=== PATIENT | male | born 1950 | race Caucasian/White ===

== ENCOUNTER 2019-02-28 11:32 | Inpatient (IN) ==
[2019-02-28] MEDS ORDERED: guaiFENesin/DM ER 600-30 MG TABLET PO PRN (13:25)
[2019-02-28] MEDS ORDERED: DOCUSATE SODIUM 100 MG CAPSULE PO PRN (13:25)
[2019-02-28] MEDS ORDERED: ACETAMINOPHEN 325 MG TABLET PO PRN (13:25)
[2019-02-28] MEDS ORDERED: ONDANSETRON 4 MG/2 ML VIAL IV PRN (13:25)
[2019-02-28 14:24] LABS: Basophils # 0.2 10*3/uL (0.0-0.2); Eosinophils % 0.1 % (0.00-10.9); Hematocrit 49.1 VOL% (42.0-52.0); Hemoglobin 16.6 GM/DL (14.0-18.0); Immature Granulocytes % 9.7 %; Immature Granulocytes Absolute 1.51 #; Lymphocytes # 0.5 10*3/uL (1.4-4.0); Lymphocytes % 3.4 % (21.2-54.2); Mean Corpuscular HGB Conc 33.8 GM/DL (32-36); Mean Corpuscular Volume 89.1 FL (87-102); Mean Platelet Volume 10.4 FL (9.6-12.0); Monocytes % 5.1 % (1.7-12.7); NRBC # 0.14 10*3/uL; Neutrophils % 80.7 % (38.7-73.9); Platelet Count 176 T/CUMM (130-400); Red Blood Count 5.51 MC/CUMM (3.8-5.5); Red Cell Distribution Width 17.2 % (9.3-17.3); White Blood Count 15.6 T/CUMM (4-12)
[2019-02-28] MEDS ORDERED: ALBUTEROL 2.5 MG/3 ML NEB RESP TX PRN (14:35)
[2019-02-28 14:55] LABS: Albumin 2.8 G/DL (3.4-5.0); Calcium 8.9 MG/DL (8.5-10.1); Osmolality,Calculated 276.7 MOS/KG (273-304); Risk Ratio 3.07; Thyroid Stimulating Hormone 0.257 uIU/ml (0.358-3.74); Total Protein 6.4 G/DL (6.4-8.3); VLDL CHOLESTEROL 39.4 MG/DL
[2019-02-28] MEDS: SODIUM CHLORIDE 0.9% 1,000 ML IV SCH (15:04)
[2019-02-28] MEDS: cefTRIAXone 1,000 MG in SYRINGE 1 EACH IV SCH (15:04)
[2019-02-28 15:25] LABS: Lymphocytes 5 % (20-55); Nucleated Red Blood Cells 3 (0-5); Segmented Neutrophils 91 % (50-85); Total Cells Counted 100
[2019-02-28 15:26] LABS: Atypical Lymphocytes Few; Burr Cells Few; Platelet Estimate Adequate; Polychromasia 1+
[2019-02-28 15:27] LABS: Anisocytosis Slight; Macrocytosis Slight; Poikilocytosis 1+
[2019-02-28] MEDS: AZITHROMYCIN INJ 500 MG in SODIUM CHLORIDE 0.9% 250 ML IV SCH (16:28)
[2019-02-28] MEDS: predniSONE 20 MG TABLET PO SCH (18:22)
[2019-02-28] MEDS: ALBUTEROL/IPRATROPIUM 3 ML NEB RESP TX SCH (19:26)
[2019-02-28] MEDS: ENOXAPARIN 40 MG/0.4 ML SYRINGE SUBCUT SCH (20:37)
[2019-02-28 21:15] LABS: Apearance,Urine Clear (Clear); Bilirubin,Urine Negative (Negative); Blood, Urine Negative (Negative); Glucose,Urine (UA) Negative (Negative); Ketones,Urine Negative (Negative); Nitrite,Urine Negative (Negative); Protein,Urine Negative; Urine Color Yellow (Yellow); Urine Specific Gravity 1.015 (1.001-1.035); Urine Urobilinogen 0.2 EU/DL (0.2-1.0)
[2019-02-28 21:16] LABS: Ictotest,Urine Negative (Negative)
[2019-03-01] MEDS: ALBUTEROL/IPRATROPIUM 3 ML NEB RESP TX SCH ×4 (00:51→19:36)
[2019-03-01 08:22] LABS: Basophils # 0.1 10*3/uL (0.0-0.2); Basophils % 0.6 % (0.0-0.8); Eosinophils % 0.2 % (0.00-10.9); Hematocrit 43.7 VOL% (42.0-52.0); Hemoglobin 14.7 GM/DL (14.0-18.0); Immature Granulocytes % 6.3 %; Immature Granulocytes Absolute 0.79 #; Lymphocytes # 0.5 10*3/uL (1.4-4.0); Lymphocytes % 3.8 % (21.2-54.2); Mean Corpuscular HGB Conc 33.6 GM/DL (32-36); Mean Corpuscular Volume 90.7 FL (87-102); Monocytes % 5.2 % (1.7-12.7); NRBC # 0.05 10*3/uL; Neutrophils % 83.9 % (38.7-73.9); Platelet Count 154 T/CUMM (130-400); Red Blood Count 4.82 MC/CUMM (3.8-5.5); Red Cell Distribution Width 16.6 % (9.3-17.3); White Blood Count 12.5 T/CUMM (4-12)
[2019-03-01] MEDS ORDERED: predniSONE 50 MG TABLET ONE (08:22)
[2019-03-01 08:34] LABS: Eosinophils 1 % (0-10); Hypochromasia 1+; Lymphocytes 3 % (20-55); Macrocytosis Slight; Nucleated Red Blood Cells 2 (0-5); Platelet Estimate Normal; Segmented Neutrophils 92 % (50-85); Total Cells Counted 100
[2019-03-01] MEDS: predniSONE 20 MG TABLET PO SCH (08:43)
[2019-03-01] MEDS: PANTOPRAZOLE 40 MG TABLET PO SCH (08:43)
[2019-03-01 08:44] LABS: Calcium 8.2 MG/DL (8.5-10.1); Osmolality,Calculated 280.1 MOS/KG (273-304)
[2019-03-01 08:54] LABS: Free T4 (Free Thyroxine) 0.66 NG/DL (0.76-1.46)
[2019-03-01] MEDS: SODIUM CHLORIDE 0.9% 1,000 ML IV SCH (13:16)
[2019-03-01] MEDS: cefTRIAXone 1,000 MG in SYRINGE 1 EACH IV SCH (17:23)
[2019-03-01] MEDS: AZITHROMYCIN INJ 500 MG in SODIUM CHLORIDE 0.9% 250 ML IV SCH (17:23)
[2019-03-01] MEDS: FLUTICASONE 50 MCG NASAL SPRAY 16 GM BOTTLE BOTH NARES SCH (20:53)
[2019-03-01] MEDS: ENOXAPARIN 40 MG/0.4 ML SYRINGE SUBCUT SCH (20:54)
[2019-03-02] MEDS: ALBUTEROL/IPRATROPIUM 3 ML NEB RESP TX SCH ×4 (00:58→19:41)
[2019-03-02] MEDS: SODIUM CHLORIDE 0.9% 1,000 ML IV SCH (06:50)
[2019-03-02] MEDS: predniSONE 20 MG TABLET PO SCH (08:47)
[2019-03-02] MEDS: PANTOPRAZOLE 40 MG TABLET PO SCH (08:48)
[2019-03-02] MEDS: AZITHROMYCIN 250 MG TABLET PO SCH (08:48)
[2019-03-02] MEDS: FLUTICASONE 50 MCG NASAL SPRAY 16 GM BOTTLE BOTH NARES SCH ×2 (08:49→20:37)
[2019-03-02] MEDS: cefTRIAXone 1,000 MG in SYRINGE 1 EACH IV SCH (16:42)
[2019-03-02] MEDS: ENOXAPARIN 40 MG/0.4 ML SYRINGE SUBCUT SCH (20:37)
[2019-03-03] MEDS: ALBUTEROL/IPRATROPIUM 3 ML NEB RESP TX SCH ×4 (01:38→19:12)
[2019-03-03 05:28] LABS: Basophils # 0.1 10*3/uL (0.0-0.2); Basophils % 0.5 % (0.0-0.8); Hematocrit 41.2 VOL% (42.0-52.0); Hemoglobin 13.5 GM/DL (14.0-18.0); Immature Granulocytes % 6.2 %; Immature Granulocytes Absolute 0.72 #; Lymphocytes # 0.3 10*3/uL (1.4-4.0); Lymphocytes % 2.2 % (21.2-54.2); Mean Corpuscular HGB Conc 32.8 GM/DL (32-36); Mean Corpuscular Volume 93.4 FL (87-102); Mean Platelet Volume 10.7 FL (9.6-12.0); Monocytes % 3.8 % (1.7-12.7); NRBC # 0.03 10*3/uL; Neutrophils % 87.3 % (38.7-73.9); Platelet Count 126 T/CUMM (130-400); Red Blood Count 4.41 MC/CUMM (3.8-5.5); White Blood Count 11.7 T/CUMM (4-12)
[2019-03-03 05:36] LABS: Calcium 8.3 MG/DL (8.5-10.1); Osmolality,Calculated 287.3 MOS/KG (273-304)
[2019-03-03 06:21] LABS: Anisocytosis Slight; Lymphocytes 1 % (20-55); Microcytosis Slight; Myelocytes 1 %; Segmented Neutrophils 97 % (50-85); Total Cells Counted 100
[2019-03-03 06:22] LABS: Platelet Estimate Normal; Spherocytes Slight
[2019-03-03] MEDS: SODIUM CHLORIDE 0.9% 1,000 ML IV SCH ×2 (06:35→08:39)
[2019-03-03] MEDS: AZITHROMYCIN 250 MG TABLET PO SCH (09:21)
[2019-03-03] MEDS: PANTOPRAZOLE 40 MG TABLET PO SCH (09:21)
[2019-03-03] MEDS: FLUTICASONE 50 MCG NASAL SPRAY 16 GM BOTTLE BOTH NARES SCH ×2 (09:22→20:55)
[2019-03-03] MEDS: cefTRIAXone 1,000 MG in SYRINGE 1 EACH IV SCH (15:06)
[2019-03-03] MEDS: BISACODYL 5 MG TABLET PO PRN (15:09)
[2019-03-03] MEDS: ENOXAPARIN 40 MG/0.4 ML SYRINGE SUBCUT SCH (20:56)
[2019-03-04] MEDS: ALBUTEROL/IPRATROPIUM 3 ML NEB RESP TX SCH ×4 (01:04→18:54)
[2019-03-04] MEDS: SODIUM CHLORIDE 0.9% 1,000 ML IV SCH (04:23)
[2019-03-04] MEDS: PANTOPRAZOLE 40 MG TABLET PO SCH (09:40)
[2019-03-04] MEDS: FLUTICASONE 50 MCG NASAL SPRAY 16 GM BOTTLE BOTH NARES SCH ×2 (09:40→20:37)
[2019-03-04] MEDS: ASPIRIN CHEW 81 MG TABLET PO SCH (13:55)
[2019-03-04] MEDS: hydroCHLOROthiazide 25 MG TABLET PO SCH (13:55)
[2019-03-04] MEDS: amLODIPine 10 MG TABLET PO SCH (13:55)
[2019-03-04] MEDS: PROPRANOLOL 20 MG TABLET PO SCH ×2 (13:55→20:33)
[2019-03-04] MEDS: cefTRIAXone 1,000 MG in SYRINGE 1 EACH IV SCH (16:31)
[2019-03-04] MEDS: BISACODYL 5 MG TABLET PO PRN (16:31)
[2019-03-04] MEDS: DEXAMETHASONE 4 MG TABLET PO SCH (20:34)
[2019-03-04] MEDS: ENOXAPARIN 40 MG/0.4 ML SYRINGE SUBCUT SCH (20:34)
[2019-03-04] MEDS: ATORVASTATIN 80 MG TABLET PO SCH (20:34)
[2019-03-05] MEDS: ALBUTEROL/IPRATROPIUM 3 ML NEB RESP TX SCH ×4 (01:55→19:40)
[2019-03-05 05:14] LABS: Basophils # 0.1 10*3/uL (0.0-0.2); Basophils % 0.5 % (0.0-0.8); Eosinophils % 0.3 % (0.00-10.9); Hemoglobin 13.2 GM/DL (14.0-18.0); Lymphocytes # 0.3 10*3/uL (1.4-4.0); Lymphocytes % 2.8 % (21.2-54.2); Mean Corpuscular Volume 93.2 FL (87-102); Mean Platelet Volume 10.9 FL (9.6-12.0); Monocytes % 2.2 % (1.7-12.7); NRBC # 0.03 10*3/uL; Neutrophils % 88.2 % (38.7-73.9); Platelet Count 124 T/CUMM (130-400); Red Blood Count 4.29 MC/CUMM (3.8-5.5); Red Cell Distribution Width 17.9 % (9.3-17.3); White Blood Count 11.6 T/CUMM (4-12)
[2019-03-05 05:27] LABS: Calcium 7.9 MG/DL (8.5-10.1); Osmolality,Calculated 275.8 MOS/KG (273-304)
[2019-03-05 05:43] LABS: Anisocytosis 1+; Eosinophils 2 % (0-10); Lymphocytes 5 % (20-55); Segmented Neutrophils 89 % (50-85); Smudge Cells 1+; Total Cells Counted 100
[2019-03-05 05:44] LABS: Platelet Estimate Decreased
[2019-03-05] MEDS: PANTOPRAZOLE 40 MG TABLET PO SCH (09:04)
[2019-03-05] MEDS: DEXAMETHASONE 4 MG TABLET PO SCH ×2 (09:04→21:38)
[2019-03-05] MEDS: POTASSIUM CHLORIDE 10 MEQ TABLET PO SCH (09:04)
[2019-03-05] MEDS: ASPIRIN CHEW 81 MG TABLET PO SCH (09:04)
[2019-03-05] MEDS: FLUTICASONE 50 MCG NASAL SPRAY 16 GM BOTTLE BOTH NARES SCH ×2 (09:06→21:37)
[2019-03-05] MEDS: PROPRANOLOL 20 MG TABLET PO SCH ×2 (09:09→20:18)
[2019-03-05] MEDS: hydroCHLOROthiazide 25 MG TABLET PO SCH (09:09)
[2019-03-05] MEDS: amLODIPine 10 MG TABLET PO SCH (09:09)
[2019-03-05] MEDS: cefTRIAXone 1,000 MG in SYRINGE 1 EACH IV SCH (15:56)
[2019-03-05] MEDS: ATORVASTATIN 80 MG TABLET PO SCH (21:38)
[2019-03-05] MEDS: ENOXAPARIN 40 MG/0.4 ML SYRINGE SUBCUT SCH (21:38)
[2019-03-06] MEDS: ALBUTEROL/IPRATROPIUM 3 ML NEB RESP TX SCH ×2 (00:14→07:18)
[2019-03-06 05:13] LABS: Basophils % 0.3 % (0.0-0.8); Eosinophils % 0.1 % (0.00-10.9); Hematocrit 38.2 VOL% (42.0-52.0); Hemoglobin 12.4 GM/DL (14.0-18.0); Immature Granulocytes % 5.5 %; Immature Granulocytes Absolute 0.54 #; Lymphocytes # 0.4 10*3/uL (1.4-4.0); Lymphocytes % 3.8 % (21.2-54.2); Mean Corpuscular HGB Conc 32.5 GM/DL (32-36); Mean Corpuscular Volume 92.5 FL (87-102); Mean Platelet Volume 10.8 FL (9.6-12.0); Monocytes % 3.4 % (1.7-12.7); NRBC # 0.03 10*3/uL; Neutrophils % 86.9 % (38.7-73.9); Platelet Count 132 T/CUMM (130-400); Red Blood Count 4.13 MC/CUMM (3.8-5.5); Red Cell Distribution Width 17.6 % (9.3-17.3); White Blood Count 9.8 T/CUMM (4-12)
[2019-03-06 05:14] LABS: Calcium 8.4 MG/DL (8.5-10.1); Osmolality,Calculated 280.7 MOS/KG (273-304)
[2019-03-06 06:11] LABS: Anisocytosis 1+; Band Neutrophils 3 % (0-10); Lymphocytes 3 % (20-55); Platelet Estimate Adequate; Segmented Neutrophils 90 % (50-85); Total Cells Counted 100
[2019-03-06] MEDS: amLODIPine 10 MG TABLET PO SCH (08:50)
[2019-03-06] MEDS: hydroCHLOROthiazide 25 MG TABLET PO SCH (08:50)
[2019-03-06] MEDS: PROPRANOLOL 20 MG TABLET PO SCH ×2 (08:50→11:36)
[2019-03-06] MEDS: DEXAMETHASONE 4 MG TABLET PO SCH (08:51)
[2019-03-06] MEDS: PANTOPRAZOLE 40 MG TABLET PO SCH (08:51)
[2019-03-06] MEDS: POTASSIUM CHLORIDE 10 MEQ TABLET PO SCH (08:51)
[2019-03-06] MEDS: ASPIRIN CHEW 81 MG TABLET PO SCH (08:51)
[2019-03-06] MEDS: FLUTICASONE 50 MCG NASAL SPRAY 16 GM BOTTLE BOTH NARES SCH (08:54)
[2019-03-06 12:02] VITALS: BP 128/98
== END 2019-03-06 14:33 | disposition swing bed (61) | DRG 177 ==
LOC: N.4E → SUATTDRO 12:03 → N.4E 12:25
PROVIDERS: ADMIT Internal Medicine; ATTEND Internal Medicine

== ENCOUNTER 2019-03-16 10:12 | Inpatient (IN) ==
[2019-03-16] MEDS ORDERED: ALBUTEROL 2.5 MG/3 ML NEB RESP TX PRN (14:03)
[2019-03-16] MEDS ORDERED: ONDANSETRON 4 MG/2 ML VIAL IV PRN (14:03)
[2019-03-16] MEDS: SODIUM CHLORIDE 0.9% 1,000 ML IV SCH ×2 (14:25→22:30)
[2019-03-16] MEDS ORDERED: cefTRIAXone 1,000 MG in SYRINGE 1 EACH IV SCH (14:30)
[2019-03-16] MEDS ORDERED: NOREPINEPHRINE 8 MG in SODIUM CHLORIDE 0.9% 242 ML IV SCH (14:30)
[2019-03-16 14:34] LABS: Basophils # 0.1 10*3/uL (0.0-0.2); Basophils % 0.4 % (0.0-0.8); Hematocrit 42.9 VOL% (42.0-52.0); Hemoglobin 14.5 GM/DL (14.0-18.0); Immature Granulocytes % 2.1 %; Immature Granulocytes Absolute 0.27 #; Lymphocytes # 0.2 10*3/uL (1.4-4.0); Lymphocytes % 1.9 % (21.2-54.2); Mean Corpuscular HGB Conc 33.8 GM/DL (32-36); Mean Corpuscular Volume 89.9 FL (87-102); Mean Platelet Volume 9.5 FL (9.6-12.0); Monocytes % 3.7 % (1.7-12.7); NRBC # 0.07 10*3/uL; Neutrophils % 91.9 % (38.7-73.9); Platelet Count 113 T/CUMM (130-400); Red Blood Count 4.77 MC/CUMM (3.8-5.5); White Blood Count 12.6 T/CUMM (4-12)
[2019-03-16 14:57] LABS: Albumin 2.5 G/DL (3.4-5.0); Bilirubin,Total 0.7 MG/DL (0.2-1.0); Calcium 8.2 MG/DL (8.5-10.1); Osmolality,Calculated 273.4 MOS/KG (273-304); Total Protein 5.7 G/DL (6.4-8.3)
[2019-03-16 15:11] LABS: Lymphocytes 1 % (20-55); Polychromasia Few; Segmented Neutrophils 98 % (50-85); Total Cells Counted 100
[2019-03-16 15:12] LABS: Macrocytosis Slight; Platelet Estimate Adequate
[2019-03-16] MEDS ORDERED: SODIUM CHLORIDE 0.9% 500 ML IV ONE (16:56)
[2019-03-16] MEDS: PANTOPRAZOLE 40 MG TABLET PO SCH (17:30)
[2019-03-16] MEDS: methylPREDNISolone SOD SUC 125 MG/2 ML VIAL IV SCH ×2 (17:31→23:05)
[2019-03-16] MEDS: PIPERACILLIN/TAZOBACTAM 3,375 MG in SODIUM CHLORIDE 0.9% 100 ML IV SCH (17:33)
[2019-03-16 19:03] LABS: Apearance,Urine CLEAR (Clear); Bilirubin,Urine Negative (Negative); Blood, Urine Negative (Negative); Glucose,Urine (UA) Negative (Negative); Ketones,Urine Negative (Negative); Mucus,Urine Occasional /LPF (Occasional); Nitrite,Urine Negative (Negative); Protein,Urine Negative; RBC,Urine <1 /HPF (0-4); Squamous Epithelial Cell,Urine Occasional /HPF (0-10); Urine Color Yellow (Yellow); Urine Specific Gravity 1.016 (1.001-1.035); Urine Urobilinogen < 2.0 EU/DL (0.2-1.0); WBC,Urine <1 /HPF (0-6)
[2019-03-16] MEDS: ALBUTEROL/IPRATROPIUM 3 ML NEB RESP TX SCH (19:30)
[2019-03-17] MEDS: ALBUTEROL/IPRATROPIUM 3 ML NEB RESP TX SCH ×4 (00:33→20:32)
[2019-03-17] MEDS: PIPERACILLIN/TAZOBACTAM 3,375 MG in SODIUM CHLORIDE 0.9% 100 ML IV SCH ×3 (01:11→17:59)
[2019-03-17] MEDS: SODIUM CHLORIDE 0.9% 1,000 ML IV SCH (03:25)
[2019-03-17] MEDS: methylPREDNISolone SOD SUC 125 MG/2 ML VIAL IV SCH (05:07)
[2019-03-17 05:56] LABS: Basophils % 0.3 % (0.0-0.8); Hematocrit 38.6 VOL% (42.0-52.0); Hemoglobin 13.1 GM/DL (14.0-18.0); Immature Granulocytes Absolute 0.16 #; Lymphocytes # 0.1 10*3/uL (1.4-4.0); Lymphocytes % 1.6 % (21.2-54.2); Mean Corpuscular HGB Conc 33.9 GM/DL (32-36); Mean Platelet Volume 10.6 FL (9.6-12.0); Monocytes % 2.3 % (1.7-12.7); NRBC # 0.03 10*3/uL; Neutrophils % 93.8 % (38.7-73.9); Platelet Count 103 T/CUMM (130-400); Red Blood Count 4.24 MC/CUMM (3.8-5.5); Red Cell Distribution Width 17.9 % (9.3-17.3); White Blood Count 7.9 T/CUMM (4-12)
[2019-03-17 06:15] LABS: Albumin 2.3 G/DL (3.4-5.0); Bilirubin,Total 1.3 MG/DL (0.2-1.0); Osmolality,Calculated 278.1 MOS/KG (273-304); Total Protein 5.2 G/DL (6.4-8.3)
[2019-03-17 06:19] LABS: Band Neutrophils 1 % (0-10); Hypochromasia 1+; Nucleated Red Blood Cells 1 (0-5); Ovalocytes Slight; Platelet Estimate Decreased; Segmented Neutrophils 97 % (50-85); Total Cells Counted 100
[2019-03-17] MEDS ORDERED: ONDANSETRON 4 MG TABLET PO PRN (08:04)
[2019-03-17] MEDS ORDERED: methylPREDNISolone SOD SUC 40 MG/1 ML VIAL IV SCH (08:30)
[2019-03-17] MEDS: POTASSIUM CHLORIDE 10 MEQ TABLET PO SCH (08:30)
[2019-03-17] MEDS: DEXAMETHASONE 4 MG TABLET PO SCH ×2 (08:30→21:32)
[2019-03-17] MEDS: ASPIRIN CHEW 81 MG TABLET PO SCH (08:30)
[2019-03-17] MEDS: PROPRANOLOL 20 MG TABLET PO SCH ×2 (08:30→21:32)
[2019-03-17] MEDS: FLUTICASONE 50 MCG NASAL SPRAY 16 GM BOTTLE BOTH NARES SCH ×2 (08:30→21:34)
[2019-03-17] MEDS: PANTOPRAZOLE 40 MG TABLET PO SCH (16:41)
[2019-03-17] MEDS: ATORVASTATIN 80 MG TABLET PO SCH (21:32)
[2019-03-18] MEDS: PIPERACILLIN/TAZOBACTAM 3,375 MG in SODIUM CHLORIDE 0.9% 100 ML IV SCH ×3 (01:58→17:20)
[2019-03-18] MEDS: ALBUTEROL/IPRATROPIUM 3 ML NEB RESP TX SCH ×4 (02:48→19:28)
[2019-03-18 06:49] LABS: Basophils % 0.3 % (0.0-0.8); Hematocrit 38.4 VOL% (42.0-52.0); Hemoglobin 12.9 GM/DL (14.0-18.0); Immature Granulocytes % 1.9 %; Immature Granulocytes Absolute 0.19 #; Lymphocytes # 0.1 10*3/uL (1.4-4.0); Lymphocytes % 1.1 % (21.2-54.2); Mean Corpuscular HGB Conc 33.6 GM/DL (32-36); Mean Corpuscular Volume 92.3 FL (87-102); Mean Platelet Volume 10.2 FL (9.6-12.0); Monocytes % 2.8 % (1.7-12.7); NRBC # 0.03 10*3/uL; Neutrophils % 93.9 % (38.7-73.9); Platelet Count 110 T/CUMM (130-400); Red Blood Count 4.16 MC/CUMM (3.8-5.5); White Blood Count 9.8 T/CUMM (4-12)
[2019-03-18 07:26] LABS: Calcium 8.4 MG/DL (8.5-10.1); Osmolality,Calculated 281.8 MOS/KG (273-304)
[2019-03-18] MEDS: PROPRANOLOL 20 MG TABLET PO SCH ×2 (08:23→21:23)
[2019-03-18] MEDS: ASPIRIN CHEW 81 MG TABLET PO SCH (08:24)
[2019-03-18] MEDS: POTASSIUM CHLORIDE 10 MEQ TABLET PO SCH (08:24)
[2019-03-18] MEDS: DEXAMETHASONE 4 MG TABLET PO SCH ×2 (08:24→21:23)
[2019-03-18] MEDS: FLUTICASONE 50 MCG NASAL SPRAY 16 GM BOTTLE BOTH NARES SCH ×2 (08:25→21:23)
[2019-03-18 12:15] LABS: Segmented Neutrophils 97 % (50-85); Total Cells Counted 100
[2019-03-18 12:16] LABS: Ovalocytes Few; Platelet Estimate Adequate; Polychromasia Slight
[2019-03-18] MEDS: PANTOPRAZOLE 40 MG TABLET PO SCH (18:12)
[2019-03-18] MEDS: ATORVASTATIN 80 MG TABLET PO SCH (21:23)
[2019-03-19] MEDS: PIPERACILLIN/TAZOBACTAM 3,375 MG in SODIUM CHLORIDE 0.9% 100 ML IV SCH ×4 (01:03→17:10)
[2019-03-19] MEDS: ALBUTEROL/IPRATROPIUM 3 ML NEB RESP TX SCH ×4 (01:48→19:23)
[2019-03-19 03:09] LABS: Basophils % 0.5 % (0.0-0.8); Hematocrit 37.6 VOL% (42.0-52.0); Hemoglobin 12.8 GM/DL (14.0-18.0); Immature Granulocytes % 4.8 %; Immature Granulocytes Absolute 0.42 #; Lymphocytes # 0.2 10*3/uL (1.4-4.0); Lymphocytes % 1.9 % (21.2-54.2); Mean Corpuscular Volume 91.9 FL (87-102); Mean Platelet Volume 10.4 FL (9.6-12.0); Monocytes % 4.8 % (1.7-12.7); NRBC # 0.02 10*3/uL; Platelet Count 127 T/CUMM (130-400); Red Blood Count 4.09 MC/CUMM (3.8-5.5); Red Cell Distribution Width 18.5 % (9.3-17.3); White Blood Count 8.7 T/CUMM (4-12)
[2019-03-19 03:39] LABS: Albumin 2.2 G/DL (3.4-5.0); Bilirubin,Total 0.8 MG/DL (0.2-1.0); Calcium 8.3 MG/DL (8.5-10.1); Osmolality,Calculated 288.5 MOS/KG (273-304); Total Protein 5.2 G/DL (6.4-8.3)
[2019-03-19 03:47] LABS: Band Neutrophils 2 % (0-10); Lymphocytes 2 % (20-55); Segmented Neutrophils 88 % (50-85); Total Cells Counted 100
[2019-03-19 03:48] LABS: Anisocytosis 1+; Hypochromasia Slight; Macrocytosis Slight; Microcytosis Slight; Platelet Estimate Decreased
[2019-03-19] MEDS: ASPIRIN CHEW 81 MG TABLET PO SCH (08:09)
[2019-03-19] MEDS: PROPRANOLOL 20 MG TABLET PO SCH ×2 (08:09→21:34)
[2019-03-19] MEDS: POTASSIUM CHLORIDE 10 MEQ TABLET PO SCH (08:09)
[2019-03-19] MEDS: DEXAMETHASONE 4 MG TABLET PO SCH ×2 (08:09→21:35)
[2019-03-19] MEDS: FLUTICASONE 50 MCG NASAL SPRAY 16 GM BOTTLE BOTH NARES SCH ×2 (11:37→21:35)
[2019-03-19] MEDS ORDERED: GLUCAGON 1 MG VIAL IM PRN (12:00)
[2019-03-19] MEDS ORDERED: DEXTROSE 50% 25 GM/50 ML VIAL IV PRN (12:00)
[2019-03-19] MEDS: INSULIN REGULAR 100 UNIT/ML SUBCUT SCH ×2 (17:10→21:35)
[2019-03-19] MEDS: PANTOPRAZOLE 40 MG TABLET PO SCH (17:11)
[2019-03-19] MEDS: ATORVASTATIN 80 MG TABLET PO SCH (21:35)
[2019-03-20] MEDS: ALBUTEROL/IPRATROPIUM 3 ML NEB RESP TX SCH ×4 (00:59→18:59)
[2019-03-20] MEDS: PIPERACILLIN/TAZOBACTAM 3,375 MG in SODIUM CHLORIDE 0.9% 100 ML IV SCH ×2 (01:36→09:28)
[2019-03-20] MEDS: ASPIRIN CHEW 81 MG TABLET PO SCH (09:29)
[2019-03-20] MEDS: INSULIN REGULAR 100 UNIT/ML SUBCUT SCH ×4 (09:30→21:09)
[2019-03-20] MEDS: DEXAMETHASONE 4 MG TABLET PO SCH ×2 (09:30→21:09)
[2019-03-20] MEDS: PROPRANOLOL 20 MG TABLET PO SCH ×2 (09:30→21:08)
[2019-03-20] MEDS: POTASSIUM CHLORIDE 10 MEQ TABLET PO SCH (09:31)
[2019-03-20] MEDS: FLUTICASONE 50 MCG NASAL SPRAY 16 GM BOTTLE BOTH NARES SCH ×2 (09:31→21:10)
[2019-03-20] MEDS: PANTOPRAZOLE 40 MG TABLET PO SCH (19:04)
[2019-03-20] MEDS: ATORVASTATIN 80 MG TABLET PO SCH (21:09)
[2019-03-21] MEDS: ALBUTEROL/IPRATROPIUM 3 ML NEB RESP TX SCH ×4 (01:42→19:37)
[2019-03-21] MEDS: INSULIN REGULAR 100 UNIT/ML SUBCUT SCH ×4 (09:10→20:35)
[2019-03-21] MEDS: PROPRANOLOL 20 MG TABLET PO SCH ×2 (09:11→20:34)
[2019-03-21] MEDS: DEXAMETHASONE 4 MG TABLET PO SCH ×2 (09:11→20:34)
[2019-03-21] MEDS: ASPIRIN CHEW 81 MG TABLET PO SCH (09:12)
[2019-03-21] MEDS: FLUTICASONE 50 MCG NASAL SPRAY 16 GM BOTTLE BOTH NARES SCH ×2 (09:12→20:37)
[2019-03-21] MEDS: POTASSIUM CHLORIDE 10 MEQ TABLET PO SCH (09:12)
[2019-03-21] MEDS: PANTOPRAZOLE 40 MG TABLET PO SCH (16:46)
[2019-03-21] MEDS ORDERED: MUPIROCIN 2% OINT 22 GM TUBE TOP PRN (17:41)
[2019-03-21] MEDS: ATORVASTATIN 80 MG TABLET PO SCH (20:34)
[2019-03-22] MEDS: ALBUTEROL/IPRATROPIUM 3 ML NEB RESP TX SCH ×4 (00:25→20:08)
[2019-03-22 05:06] LABS: Basophils # 0.1 10*3/uL (0.0-0.2); Basophils % 0.7 % (0.0-0.8); Hematocrit 40.1 VOL% (42.0-52.0); Hemoglobin 12.9 GM/DL (14.0-18.0); Immature Granulocytes % 7.9 %; Immature Granulocytes Absolute 0.56 #; Lymphocytes # 0.3 10*3/uL (1.4-4.0); Lymphocytes % 3.7 % (21.2-54.2); Mean Corpuscular HGB Conc 32.2 GM/DL (32-36); Mean Corpuscular Volume 93.9 FL (87-102); Monocytes % 4.4 % (1.7-12.7); NRBC # 0.04 10*3/uL; Neutrophils % 83.3 % (38.7-73.9); Platelet Count 126 T/CUMM (130-400); Red Blood Count 4.27 MC/CUMM (3.8-5.5); Red Cell Distribution Width 19.1 % (9.3-17.3); White Blood Count 7.1 T/CUMM (4-12)
[2019-03-22 05:30] LABS: Calcium 8.3 MG/DL (8.5-10.1); Osmolality,Calculated 284.4 MOS/KG (273-304)
[2019-03-22] MEDS: INSULIN REGULAR 100 UNIT/ML SUBCUT SCH ×4 (08:34→21:21)
[2019-03-22] MEDS: PROPRANOLOL 20 MG TABLET PO SCH ×2 (08:39→21:22)
[2019-03-22] MEDS: POTASSIUM CHLORIDE 10 MEQ TABLET PO SCH (08:40)
[2019-03-22] MEDS: ASPIRIN CHEW 81 MG TABLET PO SCH (08:40)
[2019-03-22] MEDS: DEXAMETHASONE 4 MG TABLET PO SCH ×2 (08:40→21:22)
[2019-03-22] MEDS: FLUTICASONE 50 MCG NASAL SPRAY 16 GM BOTTLE BOTH NARES SCH ×2 (08:41→22:11)
[2019-03-22] MEDS: PANTOPRAZOLE 40 MG TABLET PO SCH (16:25)
[2019-03-22] MEDS: ATORVASTATIN 80 MG TABLET PO SCH (21:22)
[2019-03-23] MEDS: ALBUTEROL/IPRATROPIUM 3 ML NEB RESP TX SCH ×4 (00:13→19:35)
[2019-03-23] MEDS: PROPRANOLOL 20 MG TABLET PO SCH ×2 (09:55→21:23)
[2019-03-23] MEDS: POTASSIUM CHLORIDE 10 MEQ TABLET PO SCH (09:55)
[2019-03-23] MEDS: INSULIN REGULAR 100 UNIT/ML SUBCUT SCH ×4 (09:57→21:23)
[2019-03-23] MEDS: ASPIRIN CHEW 81 MG TABLET PO SCH (09:57)
[2019-03-23] MEDS: DEXAMETHASONE 4 MG TABLET PO SCH ×2 (09:57→21:23)
[2019-03-23] MEDS: FLUTICASONE 50 MCG NASAL SPRAY 16 GM BOTTLE BOTH NARES SCH ×2 (09:59→21:24)
[2019-03-23 10:41] LABS: Basophils # 0.1 10*3/uL (0.0-0.2); Basophils % 0.6 % (0.0-0.8); Hematocrit 41.7 VOL% (42.0-52.0); Hemoglobin 13.5 GM/DL (14.0-18.0); Immature Granulocytes % 7.3 %; Immature Granulocytes Absolute 0.57 #; Lymphocytes # 0.2 10*3/uL (1.4-4.0); Lymphocytes % 2.9 % (21.2-54.2); Mean Corpuscular HGB Conc 32.4 GM/DL (32-36); Mean Corpuscular Volume 94.3 FL (87-102); Mean Platelet Volume 9.9 FL (9.6-12.0); Monocytes % 2.9 % (1.7-12.7); NRBC # 0.04 10*3/uL; Neutrophils % 86.3 % (38.7-73.9); Platelet Count 134 T/CUMM (130-400); Red Blood Count 4.42 MC/CUMM (3.8-5.5); Red Cell Distribution Width 19.5 % (9.3-17.3); White Blood Count 7.8 T/CUMM (4-12)
[2019-03-23 10:51] LABS: Calcium 8.3 MG/DL (8.5-10.1); Osmolality,Calculated 284.8 MOS/KG (273-304)
[2019-03-23 11:01] LABS: Band Neutrophils 2 % (0-10); Lymphocytes 5 % (20-55); Segmented Neutrophils 90 % (50-85); Total Cells Counted 100
[2019-03-23 11:02] LABS: Hypochromasia Slight; Platelet Estimate Adequate; Polychromasia Slight
[2019-03-23] MEDS: PANTOPRAZOLE 40 MG TABLET PO SCH (17:50)
[2019-03-23] MEDS: ATORVASTATIN 80 MG TABLET PO SCH (21:23)
[2019-03-24] MEDS: ALBUTEROL/IPRATROPIUM 3 ML NEB RESP TX SCH ×4 (01:30→19:06)
[2019-03-24] MEDS: INSULIN REGULAR 100 UNIT/ML SUBCUT SCH ×4 (08:48→21:17)
[2019-03-24] MEDS: PROPRANOLOL 20 MG TABLET PO SCH ×2 (08:49→21:16)
[2019-03-24] MEDS: ASPIRIN CHEW 81 MG TABLET PO SCH (08:49)
[2019-03-24] MEDS: FLUTICASONE 50 MCG NASAL SPRAY 16 GM BOTTLE BOTH NARES SCH ×2 (08:50→21:18)
[2019-03-24] MEDS: DEXAMETHASONE 4 MG TABLET PO SCH ×2 (08:50→21:17)
[2019-03-24] MEDS: POTASSIUM CHLORIDE 10 MEQ TABLET PO SCH (08:50)
[2019-03-24 11:15] LABS: Basophils # 0.1 10*3/uL (0.0-0.2); Basophils % 0.6 % (0.0-0.8); Hematocrit 41.8 VOL% (42.0-52.0); Hemoglobin 13.8 GM/DL (14.0-18.0); Immature Granulocytes % 4.6 %; Immature Granulocytes Absolute 0.53 #; Lymphocytes # 0.2 10*3/uL (1.4-4.0); Lymphocytes % 1.7 % (21.2-54.2); Mean Corpuscular Volume 94.4 FL (87-102); Mean Platelet Volume 9.8 FL (9.6-12.0); Monocytes % 2.3 % (1.7-12.7); NRBC # 0.05 10*3/uL; Neutrophils % 90.8 % (38.7-73.9); Platelet Count 130 T/CUMM (130-400); Red Blood Count 4.43 MC/CUMM (3.8-5.5); Red Cell Distribution Width 19.6 % (9.3-17.3); White Blood Count 11.4 T/CUMM (4-12)
[2019-03-24 11:30] LABS: Calcium 8.3 MG/DL (8.5-10.1); Osmolality,Calculated 285.4 MOS/KG (273-304)
[2019-03-24 11:41] LABS: Band Neutrophils 8 % (0-10); Lymphocytes 2 % (20-55); Nucleated Red Blood Cells 2 (0-5); Segmented Neutrophils 89 % (50-85); Total Cells Counted 100
[2019-03-24 11:42] LABS: Microcytosis 1+; Polychromasia Slight
[2019-03-24] MEDS ORDERED: FUROSEMIDE 40 MG/4 ML VIAL IV ONE (12:14)
[2019-03-24] MEDS: PANTOPRAZOLE 40 MG TABLET PO SCH (15:38)
[2019-03-24] MEDS ORDERED: PHENOL 1.4% THROAT SPRAY 177 ML BOTTLE PO PRN (20:28)
[2019-03-24] MEDS: ATORVASTATIN 80 MG TABLET PO SCH (21:17)
[2019-03-24] MEDS: INSULIN GLARGINE 100 UNIT/ML SUBCUT SCH (21:17)
[2019-03-25] MEDS: ALBUTEROL/IPRATROPIUM 3 ML NEB RESP TX SCH ×4 (01:10→18:54)
[2019-03-25 05:57] LABS: Basophils # 0.1 10*3/uL (0.0-0.2); Basophils % 0.5 % (0.0-0.8); Hematocrit 41.6 VOL% (42.0-52.0); Hemoglobin 13.7 GM/DL (14.0-18.0); Immature Granulocytes % 6.1 %; Immature Granulocytes Absolute 0.56 #; Lymphocytes # 0.3 10*3/uL (1.4-4.0); Mean Corpuscular HGB Conc 32.9 GM/DL (32-36); Mean Corpuscular Volume 93.5 FL (87-102); Monocytes % 2.4 % (1.7-12.7); NRBC # 0.06 10*3/uL; Platelet Count 135 T/CUMM (130-400); Red Blood Count 4.45 MC/CUMM (3.8-5.5); Red Cell Distribution Width 19.7 % (9.3-17.3); White Blood Count 9.1 T/CUMM (4-12)
[2019-03-25 06:19] LABS: Calcium 8.6 MG/DL (8.5-10.1); Osmolality,Calculated 282.7 MOS/KG (273-304)
[2019-03-25 06:20] LABS: Band Neutrophils 4 % (0-10); Lymphocytes 4 % (20-55); Nucleated Red Blood Cells 1 (0-5); Segmented Neutrophils 87 % (50-85)
[2019-03-25 06:21] LABS: Burr Cells 1+; Platelet Estimate Normal; Polychromasia Few
[2019-03-25 06:22] LABS: Total Cells Counted 100
[2019-03-25] MEDS: INSULIN REGULAR 100 UNIT/ML SUBCUT SCH ×4 (09:46→21:36)
[2019-03-25] MEDS: PROPRANOLOL 20 MG TABLET PO SCH ×2 (09:46→21:35)
[2019-03-25] MEDS: DEXAMETHASONE 4 MG TABLET PO SCH ×2 (09:46→21:35)
[2019-03-25] MEDS: POTASSIUM CHLORIDE 10 MEQ TABLET PO SCH (09:47)
[2019-03-25] MEDS: FLUTICASONE 50 MCG NASAL SPRAY 16 GM BOTTLE BOTH NARES SCH ×2 (09:47→21:36)
[2019-03-25] MEDS: ASPIRIN CHEW 81 MG TABLET PO SCH (09:47)
[2019-03-25] MEDS: PANTOPRAZOLE 40 MG TABLET PO SCH (17:06)
[2019-03-25] MEDS: ATORVASTATIN 80 MG TABLET PO SCH (21:35)
[2019-03-25] MEDS: ALPRAZolam 0.25 MG TABLET PO PRN (21:35)
[2019-03-25] MEDS: INSULIN GLARGINE 100 UNIT/ML SUBCUT SCH (21:36)
[2019-03-26] MEDS: ALBUTEROL/IPRATROPIUM 3 ML NEB RESP TX SCH ×4 (00:05→19:21)
[2019-03-26] MEDS: POTASSIUM CHLORIDE 10 MEQ TABLET PO SCH (08:27)
[2019-03-26] MEDS: ALPRAZolam 0.25 MG TABLET PO PRN ×2 (08:27→21:19)
[2019-03-26] MEDS: PROPRANOLOL 20 MG TABLET PO SCH ×2 (08:27→21:19)
[2019-03-26] MEDS: DEXAMETHASONE 4 MG TABLET PO SCH ×2 (08:27→21:19)
[2019-03-26] MEDS: FLUTICASONE 50 MCG NASAL SPRAY 16 GM BOTTLE BOTH NARES SCH ×2 (08:28→21:19)
[2019-03-26] MEDS: ASPIRIN CHEW 81 MG TABLET PO SCH (08:28)
[2019-03-26] MEDS: INSULIN REGULAR 100 UNIT/ML SUBCUT SCH ×4 (08:28→21:32)
[2019-03-26] MEDS ORDERED: INSULIN GLARGINE 100 UNIT/ML SUBCUT SCH (15:11)
[2019-03-26] MEDS: PANTOPRAZOLE 40 MG TABLET PO SCH (17:32)
[2019-03-26] MEDS: ATORVASTATIN 80 MG TABLET PO SCH (21:19)
[2019-03-27] MEDS: ALBUTEROL/IPRATROPIUM 3 ML NEB RESP TX SCH ×4 (00:14→19:11)
[2019-03-27] MEDS ORDERED: DEXTROSE 5% 1,000 ML IV SCH (07:30)
[2019-03-27] MEDS ORDERED: DEXTROSE 5% 250 ML IV SCH (07:30)
[2019-03-27] MEDS: ALPRAZolam 0.25 MG TABLET PO PRN ×2 (09:00→21:05)
[2019-03-27] MEDS: POTASSIUM CHLORIDE 10 MEQ TABLET PO SCH (09:00)
[2019-03-27] MEDS: INSULIN REGULAR 100 UNIT/ML SUBCUT SCH ×4 (09:01→21:06)
[2019-03-27] MEDS: DEXAMETHASONE 4 MG TABLET PO SCH ×2 (09:01→21:05)
[2019-03-27] MEDS: PROPRANOLOL 20 MG TABLET PO SCH ×2 (09:01→21:05)
[2019-03-27] MEDS: ASPIRIN CHEW 81 MG TABLET PO SCH (09:01)
[2019-03-27] MEDS: FLUTICASONE 50 MCG NASAL SPRAY 16 GM BOTTLE BOTH NARES SCH ×2 (09:02→21:07)
[2019-03-27] MEDS: PANTOPRAZOLE 40 MG TABLET PO SCH (16:31)
[2019-03-27] MEDS: ATORVASTATIN 80 MG TABLET PO SCH (21:05)
[2019-03-27] MEDS: INSULIN GLARGINE 100 UNIT/ML SUBCUT SCH (21:06)
[2019-03-27] MEDS: INSULIN LISPRO 100 UNIT/ML SUBCUT SCH (21:06)
[2019-03-28] MEDS: ALBUTEROL/IPRATROPIUM 3 ML NEB RESP TX SCH ×4 (00:02→19:27)
[2019-03-28] MEDS: PROPRANOLOL 20 MG TABLET PO SCH ×2 (08:15→21:48)
[2019-03-28] MEDS: POTASSIUM CHLORIDE 10 MEQ TABLET PO SCH (08:16)
[2019-03-28] MEDS: DEXAMETHASONE 4 MG TABLET PO SCH ×2 (08:16→21:48)
[2019-03-28] MEDS: ASPIRIN CHEW 81 MG TABLET PO SCH (08:16)
[2019-03-28] MEDS: INSULIN GLARGINE 100 UNIT/ML SUBCUT SCH ×2 (08:17→21:48)
[2019-03-28] MEDS: INSULIN REGULAR 100 UNIT/ML SUBCUT SCH ×4 (08:18→21:48)
[2019-03-28] MEDS: ALPRAZolam 0.25 MG TABLET PO PRN (08:18)
[2019-03-28] MEDS: INSULIN LISPRO 100 UNIT/ML SUBCUT SCH ×4 (08:18→21:48)
[2019-03-28] MEDS: FLUTICASONE 50 MCG NASAL SPRAY 16 GM BOTTLE BOTH NARES SCH ×2 (08:20→21:48)
[2019-03-28 09:03] LABS: Basophils # 0.1 10*3/uL (0.0-0.2); Basophils % 0.5 % (0.0-0.8); Hematocrit 42.1 VOL% (42.0-52.0); Hemoglobin 14.1 GM/DL (14.0-18.0); Immature Granulocytes % 4.7 %; Lymphocytes # 0.2 10*3/uL (1.4-4.0); Lymphocytes % 1.7 % (21.2-54.2); Mean Corpuscular HGB Conc 33.5 GM/DL (32-36); Mean Corpuscular Volume 94.2 FL (87-102); Monocytes % 2.5 % (1.7-12.7); NRBC # 0.05 10*3/uL; Neutrophils % 90.6 % (38.7-73.9); Platelet Count 104 T/CUMM (130-400); Red Blood Count 4.47 MC/CUMM (3.8-5.5); Red Cell Distribution Width 19.8 % (9.3-17.3); White Blood Count 10.6 T/CUMM (4-12)
[2019-03-28 09:20] LABS: Calcium 8.3 MG/DL (8.5-10.1); Osmolality,Calculated 284.4 MOS/KG (273-304)
[2019-03-28 09:21] LABS: Band Neutrophils 2 % (0-10); Lymphocytes 2 % (20-55); Segmented Neutrophils 95 % (50-85); Total Cells Counted 100
[2019-03-28 09:22] LABS: Platelet Estimate Decreased
[2019-03-28 09:23] LABS: Macrocytosis Slight; Polychromasia Slight
[2019-03-28] MEDS: PANTOPRAZOLE 40 MG TABLET PO SCH (15:23)
[2019-03-28] MEDS: ATORVASTATIN 80 MG TABLET PO SCH (21:48)
[2019-03-29] MEDS: ALBUTEROL/IPRATROPIUM 3 ML NEB RESP TX SCH ×3 (00:15→14:03)
[2019-03-29 06:09] LABS: Basophils % 0.4 % (0.0-0.8); Eosinophils % 0.1 % (0.00-10.9); Hematocrit 39.7 VOL% (42.0-52.0); Hemoglobin 13.3 GM/DL (14.0-18.0); Immature Granulocytes % 5.2 %; Immature Granulocytes Absolute 0.39 #; Lymphocytes # 0.2 10*3/uL (1.4-4.0); Lymphocytes % 2.4 % (21.2-54.2); Mean Corpuscular HGB Conc 33.5 GM/DL (32-36); Mean Corpuscular Volume 92.5 FL (87-102); Mean Platelet Volume 9.8 FL (9.6-12.0); NRBC # 0.09 10*3/uL; Neutrophils % 89.9 % (38.7-73.9); Platelet Count 102 T/CUMM (130-400); Red Blood Count 4.29 MC/CUMM (3.8-5.5); Red Cell Distribution Width 19.9 % (9.3-17.3); White Blood Count 7.5 T/CUMM (4-12)
[2019-03-29 06:15] LABS: Calcium 8.5 MG/DL (8.5-10.1); Osmolality,Calculated 286.3 MOS/KG (273-304)
[2019-03-29 06:37] LABS: Band Neutrophils 2 % (0-10); Lymphocytes 3 % (20-55); Platelet Estimate Decreased; Segmented Neutrophils 93 % (50-85); Total Cells Counted 100
[2019-03-29 06:38] LABS: Hypochromasia Slight; Polychromasia Few
[2019-03-29] MEDS: INSULIN REGULAR 100 UNIT/ML SUBCUT SCH ×3 (07:58→17:40)
[2019-03-29] MEDS: INSULIN GLARGINE 100 UNIT/ML SUBCUT SCH (08:14)
[2019-03-29] MEDS: DEXAMETHASONE 4 MG TABLET PO SCH (08:14)
[2019-03-29] MEDS: PROPRANOLOL 20 MG TABLET PO SCH (08:14)
[2019-03-29] MEDS: ASPIRIN CHEW 81 MG TABLET PO SCH (08:14)
[2019-03-29] MEDS: INSULIN LISPRO 100 UNIT/ML SUBCUT SCH ×3 (08:14→17:40)
[2019-03-29] MEDS: POTASSIUM CHLORIDE 10 MEQ TABLET PO SCH (08:14)
[2019-03-29] MEDS: FLUTICASONE 50 MCG NASAL SPRAY 16 GM BOTTLE BOTH NARES SCH (08:16)
[2019-03-29] MEDS ORDERED: BENZONATATE 100 MG CAPSULE PO ONE (08:43)
[2019-03-29] MEDS ORDERED: BENZONATATE 100 MG CAPSULE PO PRN (08:44)
[2019-03-29] MEDS ORDERED: FUROSEMIDE 40 MG/4 ML VIAL IV ONE (10:30)
[2019-03-29 12:12] VITALS: BP 105/77
[2019-03-29] MEDS ORDERED: ALPRAZolam 0.25 MG TABLET PO PRN (14:12)
[2019-03-29] MEDS ORDERED: CEFEPIME 1,000 MG in SYRINGE 1 EACH IV SCH (14:30)
[2019-03-29] MEDS: PANTOPRAZOLE 40 MG TABLET PO SCH (17:39)
== END 2019-03-29 18:24 | DRG 199 ==
LOC: N.ICU 12:49 → SUATTDRO 12:49 → N.5E 03-17 17:19
PROVIDERS: ADMIT Internal Medicine; ATTEND Internal Medicine